=== PATIENT | female | born 1960 ===

== ENCOUNTER → 2022-10-29 11:46 | Outpatient (POV) | payer OTHER, SELFPAY ==
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
[2022-10-29 12:25] VITALS: BP 129/81; PULSE 65; RESP 19; O2SAT 97; BMI 35.2
== END | disposition home or self-care (01) ==
PROVIDERS: Visit Provider Nurse Practitioner Family
DX: M50.10 Cervical disc disorder with radiculopathy, unspecified cervical region (principal); M43.12 Spondylolisthesis, cervical region; M79.602 Pain in left arm; M25.512 Pain in left shoulder
CPT/HCPCS: 99202; G0463